=== PATIENT | female | born 1960 | race Caucasian/White ===

== ENCOUNTER 2025-04-01 06:56 | Emergency (ER) | payer BC, SELFPAY ==
[2025-04-01 06:58] VITALS: BP 179/83
--- NOTE | 2025-04-01 07:17 | ED.GENMED ---
History of Present Illness
General
Chief Complaint: Musculo-Skeletal Complaint
Source: patient and spouse
Exam Limitations: none
Time Seen by Provider: 04/01/25 07:04
Nursing documentation reviewed up to this point in time: agreed with
History of Present Illness
History of Present Illness:
Note:
CHIEF COMPLAINT(S)
Right calf pain.
HISTORY OF PRESENT ILLNESS
The patient is a 65-year-old female who presented with right calf pain. She reports that the pain began after waking from a nap, describing it as significant discomfort with a lot of tenderness. She denies any trauma, heavy activity, or exercise
prior to the onset of symptoms and only recalls going up her steps once the day before. The patient denies experiencing chest pain or difficulty breathing. She has not taken any medication for the pain.
MEDICATIONS
The patient is currently taking Losartan and Metoprolol.
PHYSICAL EXAM
General: Alert, no acute distress.
Skin: Warm, dry.
Head: Normocephalic, atraumatic.
Neck: Supple, trachea midline.
Eye Ears, nose, mouth and throat: Oral mucosa moist.
Cardiovascular: Normal peripheral perfusion, No edema.
Respiratory: Respirations are non-labored.
Gastrointestinal : Abdomen nondistended.
Back: Normal range of motion, Normal alignment.
Musculoskeletal: Normal ROM, normal strength. negative Durán's test.
Neurological: Alert and oriented to person, place, time, and situation, No focal neurological deficit observed.
Psychiatric: Cooperative, appropriate mood & affect.
PLAN
Conduct an ultrasound of the right calf to rule out deep vein thrombosis.
Order blood tests to evaluate kidney function and electrolyte levels due to the patients use of Losartan, which could affect these parameters.
Consider tendonitis of the Achilles or a muscle strain of the calf as potential diagnoses.
Monitor for any serious complications and manage accordingly.
DIFFERENTIAL DIAGNOSIS
The Differential Diagnosis includes, in no particular order and is not limited to:
1. Deep Vein Thrombosis
2. Achilles Tendonitis
3. Calf Muscle Strain
4. Gastrocnemius Tear
5. Popliteal Cyst (Bakers Cyst)
6. Peripheral Arterial Disease
7. Compartment Syndrome
8. Cellulitis
9. Venous Insufficiency
10. Lumbosacral Radiculopathy
Note:
CARE-UPDATE
04/01/25 - 08:05
Ultrasound showed no evidence of DVT. CBC and CMP revealed mild anemia, with hemoglobin at 10. Electrolytes are within normal ranges, and kidney function is normal. The patient is stable for discharge.
Disposition:
SUMMARY OF ENCOUNTER
The patient, a 65-year-old female, presented to the emergency department with right calf pain that began after waking from a nap. The pain was described as significant discomfort with tenderness. She denied any trauma or heavy activity prior to the
onset of symptoms. The patient was evaluated for deep vein thrombosis (DVT) and other potential causes. An ultrasound of the right calf was performed, which showed no evidence of DVT. Blood tests showed mild anemia with a hemoglobin level of 10, and
electrolytes and kidney function were normal. The patient reported no chest pain or difficulty breathing and had not taken any medications for the pain at the time of presentation.
DISPOSITION
Discharge.
ASSESSMENT
The differential diagnoses considered included deep vein thrombosis, Achilles tendonitis, and calf muscle strain. With DVT ruled out by ultrasound, the assessment leans towards a potential calf muscle strain or tendon-related issue.
PLAN
The patient was advised to treat the pain with acetaminophen (Tylenol) and apply ice to the affected area. She was instructed to follow up with her primary care provider for further management and evaluation.
INDEPENDENT REVIEW OF LABS AND INTERPRETATION OF TESTS
My independent review of the CBC indicates mild anemia with a hemoglobin level of 10. My independent review of the electrolyte tests and kidney function tests indicates normal results.
My independent [ultrasound] interpretation is no evidence of deep vein thrombosis.
PATIENT EDUCATION AND COUNSELING
The patient was counseled on pain management strategies and instructed to apply ice to the affected area. She was informed about the importance of following up with her primary care provider for further evaluation and management of the calf pain.
FOLLOW-UP INSTRUCTIONS
The patient was advised to follow up with her primary care provider soon.
MEDICATION RECONCILIATION
Acetaminophen (Tylenol) was recommended for pain relief.
MEDICAL DECISION MAKING
Chronic conditions affecting care include hypertension, given her current medications of losartan and metoprolol.
Data:
Category 1
My independent interpretation of the ultrasound shows no evidence of DVT.
My independent review of the CBC indicates mild anemia with a hemoglobin level of 10. My independent review of electrolyte and kidney function tests indicates normal results.
-Risk:
Consideration of Admission/Observation: Escalation of care including admission/observation was considered given the complexity and risk of the patients presenting complaint, exam findings, and/or their underlying comorbidities. However, ultimately,
I feel the patient is safe for outpatient management with close follow-up. Reasoning: Work-up reassuring, does not reveal any acute life/organ-threatening processes, patients symptoms well controlled upon reevaluation, reexamination is reassuring,
vitals are stable, patient agreeable with discharge, reliable for follow-up.
DIAGNOSIS
Calf Muscle Strain (ICD-10: S86.10XA)
Mild Anemia (ICD-10: D64.9)
Phy Exam
Physical Exam
Physical Exam:
.
Course
Orders/Labs/Results
Orders:
Orders
04/01/25 07:18
US Periph Venous LOWER Ext RT Urgent
Comment:
Reason For Exam: right calf pain
04/01/25 07:19
IV Insert/Care/Rem.- Treatment PRN
04/01/25 07:38
Complete Blood Count/With Diff Urgent
Comprehensive Metabolic Panel Urgent
Magnesium Urgent
Abnormal Lab Results
04/01/25
07:38
Hgb 10.9 L g/dL
(12.0-16.0)
Hct 34.2 L %
(37.0-47.0)
MCV 64.7 L fL
(81.0-99.0)
MCH 20.6 L pg
(27.0-31.0)
MCHC 31.9 L g/dL
(33.0-37.0)
RDW 15.4 H %
(11.5-14.5)
Neutrophils % 75.8 H %
(42.2-75.2)
Lymphocytes % 16.4 L %
(20.5-51.1)
Glucose 102 H mg/dl
(70-99)
04/01/25 07:38
04/01/25 07:38
Vital Signs
Initial and Last Documented VS:
Initial Vital Signs
Temp Pulse Resp BP Pulse Ox
98.3 F 70 16 179/83 98
04/01/25 06:58 04/01/25 06:58 04/01/25 06:58 04/01/25 06:58 04/01/25 06:58
Last Documented Vital Signs
Temp Pulse Resp BP Pulse Ox
98.3 F 70 16 179/83 98
04/01/25 06:58 04/01/25 06:58 04/01/25 06:58 04/01/25 06:58 04/01/25 07:18
*Pulse Oximetry
SaO2: 98
Oxygen Mode of Delivery: Room air
Patient hypoxic: no
*Critical Care Note
Total Time (30-74mins, 75-104mins- exclusive of procedures): Not Applicable
ED Attending Note
-
Portions of this chart may have been created with voice recognition software.� Occasional wrong word or��sound alike� substitutions may have occurred due to the inherent limitations of voice recognition software.
Discharge Plan
Departure
Patient Disposition: Home (Routine Discharge)
Date of Disposition: 04/01/25
Time of Disposition: 08:08
Patient with high blood pressure during this ER visit?: Yes
Condition: Good
Discharge Problem:
Pain of right calf
Instructions: Achilles Tendinopathy Exercises, Leg Muscle Strain ED, BLOOD PRESSURE
Referrals:
Reba Ramos MD [Family Provider] - Call in 1-3 days for appt
Interventions
Interventions:
*Risk Screen - Suicide Last Done: 04/01/25 06:58
*General Assessment Last Done: 04/01/25 07:54
*Neglect/Abuse Screening Last Done: 04/01/25 06:58
ED-Musculoskeletal Assessment Last Done: 04/01/25 07:54
Discharge Date and Time
Print Language: BRUNEIAN
[2025-04-01 07:57] LABS: Hematocrit 34.2 % (37.0-47.0); Hemoglobin 10.9 g/dL (12.0-16.0); Mean Corp Hgb Conc. 31.9 g/dL (33.0-37.0); Mean Corpuscular Volume 64.7 fL (81.0-99.0); Nucleated Red Blood Cells % 0 %; Platelet Count 279 10^3/uL (130-400); Red Cell Dist. Width 15.4 % (11.5-14.5)
[2025-04-01 08:01] LABS: ALT (SGPT) 19 U/L (0-35); AST (SGOT) 23 U/L (14-36); Albumin 4.7 g/dl (3.5-5.0); Alkaline Phosphatase 68 U/L (38-126); Blood Urea Nitrogen 15 mg/dl (7-17); Calcium 9.9 mg/dl (8.4-10.2); Carbon Dioxide 27 mmol/L (22-30); Chloride 103 mmol/L (98-107); Glucose 102 mg/dl (70-99); Magnesium 1.9 mg/dl (1.6-2.3); Potassium 4.1 mmol/L (3.5-5.1); Sodium 138 mmol/L (135-145); Total Protein 7.5 g/dl (6.3-8.2); eGFR > 60.00
[2025-04-01] MEDS: TYLENOL 650 MG PO (08:18)
== END 2025-04-01 08:21 | disposition home or self-care (01) ==
LOC: EMR 06:56
PROVIDERS: EMERGENCY PHYSICIAN Emergency Medicine; FAMILY PHYSICIAN Internal Medicine
DX: M79.661 Pain in right lower leg (principal); D64.9 Anemia, unspecified; R03.0 Elevated blood-pressure reading, without diagnosis of hypertension
CPT/HCPCS: 99284; 80053; 83735; 85025; 93971